=== PATIENT | male | born 1950 | race Caucasian/White ===

== ENCOUNTER 2024-02-19 23:00 | Inpatient (IN) | payer MEDICARE, BC ==
[~2024-02-19 23:00] MED LIST: ACETAMINOPHEN TAB 500 MG TAB ONE; SODIUM CHLORIDE 0.9% 50 ML BAG ONE; cefTRIAXone 2 GM VIAL ONE
[2024-02-20] MEDS ORDERED: SODIUM CHLORIDE 0.9% 50 ML BAG ONE (00:01)
[2024-02-20] MEDS ORDERED: DILTIAZEM 125 MG/25 ML VIAL IV ONE (00:01)
[2024-02-20] MEDS ORDERED: SODIUM CHLORIDE 0.9% 100 ML BAG IV ONE (00:01)
[2024-02-20] MEDS ORDERED: SODIUM CHLORIDE 0.9% 500 ML BAG ONE (00:01)
[2024-02-20] MEDS ORDERED: cefTRIAXone 1 GM VIAL ONE ×2 (08:25→23:24)
[2024-02-20] MEDS ORDERED: ASPIRIN 81 MG ONE (08:25)
[2024-02-20] MEDS ORDERED: PANTOPRAZOLE 40 MG TABLET PO ONE (08:25)
[2024-02-20] MEDS ORDERED: CLOPIDOGREL 75 MG TAB ONE (08:25)
[2024-02-20] MEDS ORDERED: ENOXAPARIN 30 MG/0.3 ML SYRINGE SQ ONE (08:25)
[2024-02-20] MEDS ORDERED: HEPARIN SODIUM,PORCINE 5,000 UNIT/ML 1 ML VIAL ONE (12:55)
[2024-02-20] MEDS ORDERED: DOCUSATE 100 MG CAP ONE (14:20)
[2024-02-20] MEDS ORDERED: ADENOSINE 3 MG/ML 2 ML VIAL IVP ONE ×2 (17:48→17:52)
[2024-02-20] MEDS ORDERED: METOPROLOL TARTRATE 25 MG TAB ONE (18:31)
[2024-02-20] MEDS ORDERED: APIXABAN 2.5 MG TABLET ONE (18:31)
[2024-02-20] MEDS ORDERED: ATORVASTATIN 20 MG TAB ONE (20:36)
[2024-02-20] MEDS ORDERED: LORazepam 2 MG/ML INJ IV PRN ×3 (21:45→21:46)
[2024-02-21] MEDS: THIAMINE 100 MG/ML 2 ML VIAL IM STA (03:03)
[2024-02-21] MEDS: DILTIAZEM 125 MG in SODIUM CHLORIDE 0.9% 100 ML IV SCH (03:04)
[2024-02-21] MEDS: SODIUM CHLORIDE 0.9% 1,000 ML IV SCH (03:04)
[2024-02-21] MEDS: PANTOPRAZOLE 40 MG TABLET PO SCH (06:34)
[2024-02-21 07:00] LABS: Magnesium 2.1 mg/dL (1.6-2.3)
[2024-02-21] MEDS: THIAMINE 100 MG TAB PO SCH (08:59)
[2024-02-21] MEDS: APIXABAN 5 MG TAB PO SCH (08:59)
[2024-02-21] MEDS: MULTIVITAMINS, THERA 1 EACH TAB PO SCH (08:59)
[2024-02-21] MEDS: METOPROLOL TARTRATE 25 MG TAB PO SCH (08:59)
[2024-02-21] MEDS: ASPIRIN 81 MG PO SCH (08:59)
[2024-02-21] MEDS: FAMOTIDINE 20 MG TAB PO SCH (08:59)
[2024-02-21] MEDS: DOCUSATE 100 MG CAP PO SCH (09:00)
[2024-02-21] MEDS: HEPARIN SODIUM,PORCINE 5,000 UNIT/ML 1 ML VIAL SQ SCH (09:00)
--- NOTE | 2024-02-21 10:52 | P.PN ---
Subjective Progress Note Date: 02/21/24 Hospital Course: 73-year-old male history of recently diagnosed lung cancer not on therapy, CKD 3, alcohol dependence presenting after a fall with prolonged downtime and left leg weakness. Initially admitted for possible CVA. Neurology was consulted. CT head did not show any acute process. Laboratory workup showed leukocytosis, elevated creatinine, elevated troponin. On 02/20/2024 patient also had a run of SVT, after administration of adenosine, changed to A-fib with RVR. Cardiology was consulted. Currently on Cardizem drip as well as anticoagulation. Brain MRI did not show any CVA or mass. Echocardiogram pending. Subjective: Patient seen and examined at bedside. No acute events overnight. Making urine. Pertinent positives and negatives as discussed above, a complete review of systems was performed and all other systems are negative. Vitals Signs Reviewed. General: Nontoxic, no distress, appears at stated age Derm: Warm, dry Head: Atraumatic, normocephalic, symmetric Eyes: EOMI, no lid lag, anicteric sclera Mouth: No lip lesion, mucus membranes moist Cardiovascular: S1S2 normal, irregular, no murmur Lungs: CTA bilateral, no rhonchi, no rales, no accessory muscle use Abdominal: Soft, nontender to palpation, no guarding, no appreciable organomegaly Ext: No gross muscle atrophy, no edema, no contractures Neuro: CN II-XI grossly intact, left lower extremity strength 3 out of 5 Psych: Alert, oriented, appropriate affect Data Reviewed Today: Pertinent Labs: Lactate 0.9, magnesium 2.1, TSH 1.67 Imaging: Brain MRI did not show any acute CVA or mass Assessment and Plan: Active: Severe sepsis likely secondary to urinary tract infection -Continue ceftriaxone 2 g IV -Continue normal saline 130 cc an hour NSTEMI likely type II Atrial fibrillation with RVR SVT status post adenosine -Cardiology following -Continue telemetry monitoring -Started on Cardizem drip 5 mg/h -On metoprolol 25 twice daily -On Eliquis 2.5 twice daily -Echocardiogram pending Aspirin 81 mg, atorvastatin 20 mg Fall with prolonged downtime RAJANI on CKD -Neurology following -CK ordered -Repeat CMP pending -No hydronephrosis on kidney ultrasound -CVA ruled out -PT/OT Alcohol dependence Impending alcohol withdrawal Transaminitis -IV Ativan per CIWA -Thiamine 100 mg daily -Liver ultrasound showed possible cholelithiasis, no gallbladder wall thickening, CBD within normal limits Nicotine dependence History of recently diagnosed lung cancer, not on chemotherapy -Has been counseled regarding smoking cessation -Outpatient follow-up with oncology DVT ppx: Eliquis Code status: DNR Anticipated discharge place: Pending clinical course Anticipated discharge time: Pending clinical course Objective - Vital Signs Vital signs: Vital Signs Temp 97.6 F 02/21/24 08:00 Pulse 74 02/21/24 08:00 Resp 16 02/21/24 08:00 BP 132/64 02/21/24 08:00 Pulse Ox 98 02/21/24 08:00 FiO2 Intake & Output 02/20/24 02/21/24 02/21/24 18:59 06:59 18:59 Intake Total 300 Output Total 175 Balance 125 Weight 76 kg 69.5 kg Intake: Oral 300 Output: Gastric Drainage 0 Urine 175 Stool 0 Urine/Stool Mix 0 Emesis 0 Oral Regurgitation 0 Other 0 Other: Voiding Method Urinal # Voids 0 # Bowel Movements 0
--- NOTE | 2024-02-21 11:49 | P.PN ---
Subjective Progress Note Date: 02/21/24 HPI: Patient was admitted after a fall. He was found on floor with a suspected prolonged downtime. On admission there was a concern of possible TIA/stroke for which she had a neurological workup with a CT and MRI which so far has been nonrevealing. During the hospital stay on 02/20/2024, 4 PM he was noticed to be in narrow complex tachycardia for which a team was called. I was at bedside and noted that patient was in A-fib RVR with heart rate of 170s. We gave adenosine which brought down the heart rate and showed underlying rhythm to be atrial fibrillation. Patient denies any chest pain chest pressure. Did report mild worsening shortness of breath.. SUBJECTIVE: The patient is noticed to be in a sinus rhythm heart rate around 70s, does not appear volume overloaded. He denies any chest pain chest pressure. He denies any palpitation lightheadedness at this moment. He does report some numbness in his foot and is slumped over to his left side. PHYSICAL EXAMINATION Vital signs reviewed. Head: Normocephalic. Eyes: Sclerae nonicteric. Neck: Brisk carotid upstroke, no jugular venous distention. Lungs: Clear to auscultation. Heart: Regular rate and rhythm, S1-S2, no S3, no murmur or rub. Abdomen: Soft nontender, bowel sounds present, Extremities: No edema, Neuro:Detailed neuro exam was not performed. Alert and oriented. No slurred speech. ASSESSMENT Fall with prolonged downtime, unclear if real syncopal episode TIA New onset atrial fibrillation, currently converted to normal sinus rhythm with Cardizem drip History of alcohol use, 1 pint whiskey every day Tobacco smoking 1 pack/day Lung cancer, not on chemotherapy. Patient is denying any further workup for lung cancer Extensive weight loss CKD PLAN Continue aspirin 81 mg, started by neurology Continue Eliquis 2.5 mg daily lower dose because of his weight and creatinine Continue metoprolol 25 mg twice daily. Discontinue Cardizem drip Obtain an echocardiogram Await troponin levels. Await neurological workup Britton Robbins MD, FACC, RPVI Thank you for allowing [facility] to participate in this patient's care. Please contact us in case of any followup questions. Objective - Vital Signs Vital signs: Vital Signs Temp 97.6 F 02/21/24 08:00 Pulse 74 02/21/24 08:00 Resp 16 02/21/24 08:00 BP 132/64 02/21/24 08:00 Pulse Ox 98 02/21/24 08:00 FiO2 Intake & Output 02/20/24 02/21/24 02/21/24 18:59 06:59 18:59 Intake Total 300 Output Total 175 Balance 125 Weight 76 kg 69.5 kg Intake: Oral 300 Output: Gastric Drainage 0 Urine 175 Stool 0 Urine/Stool Mix 0 Emesis 0 Oral Regurgitation 0 Other 0 Other: Voiding Method Urinal # Voids 0 # Bowel Movements 0
[2024-02-21 12:12] LABS: Basophils % (A) 0 %; Eosinophils # (A) 0.1 k/uL (0-0.7); Eosinophils % (A) 1 %; HCT 32.1 % (39.0-53.0); HGB 10.6 gm/dL (13.0-17.5); Lymphocytes # (A) 0.6 k/uL (1.0-4.8); Lymphocytes % (A) 8 %; MCH 33.1 pg (25.0-35.0); MCHC 32.9 g/dL (31.0-37.0); MCV 100.7 fL (80.0-100.0); Monocytes # (A) 0.5 k/uL (0-1.0); Monocytes % (A) 7 %; Neutrophils # (A) 6.3 k/uL (1.3-7.7); Neutrophils % (A) 83 %; Platelet Count 168 k/uL (150-450); RBC 3.19 m/uL (4.30-5.90); RDW 12.7 % (11.5-15.5); WBC 7.6 k/uL (3.8-10.6)
[2024-02-21 12:16] LABS: ALT 117 U/L (4-49); AST 245 U/L (17-59); African American GFR (CKD) 46 (>60 ml/min/1.73 sqM); Albumin 2.6 g/dL (3.5-5.0); Alkaline Phosphatase 133 U/L (38-126); Anion Gap 5 mmol/L; Blood Urea Nitrogen 50 mg/dL (9-20); Calcium 8.3 mg/dL (8.4-10.2); Carbon Dioxide 21 mmol/L (22-30); Chloride 108 mmol/L (98-107); Glucose 107 mg/dL (74-99); Non-African American GFR(CKD) 40 (>60 ml/min/1.73 sqM); Potassium 4.1 mmol/L (3.5-5.1); Sodium 134 mmol/L (137-145); Total Bilirubin 0.5 mg/dL (0.2-1.3); Total Protein 5.7 g/dL (6.3-8.2)
[2024-02-21 12:26] LABS: Creatine Kinase 2652 U/L (55-170)
--- NOTE | 2024-02-21 15:56 | P.PN ---
Subjective Progress Note Date: 02/21/24 Patient was seen for a follow-up. Please refer to my note from consultation note from yesterday for details. Patient is presently sleeping in the bed, appears comfortable. Objective - Vital Signs Vital signs: Vital Signs Temp 97.3 F L 02/21/24 15:40 Pulse 66 02/21/24 15:40 Resp 16 02/21/24 15:40 BP 119/64 02/21/24 15:40 Pulse Ox 98 02/21/24 15:40 FiO2 Intake & Output 02/20/24 02/21/24 02/21/24 18:59 06:59 18:59 Intake Total 540 Output Total 175 Balance 365 Weight 76 kg 69.5 kg Intake: Oral 540 Output: Gastric Drainage 0 Urine 175 Stool 0 Urine/Stool Mix 0 Emesis 0 Oral Regurgitation 0 Other 0 Other: Voiding Method Urinal # Voids 0 # Bowel Movements 0 - Exam On waking up, patient is alert and awake. Speech and language functions are normal. Patient has very mild left facial asymmetry, which uncertain his baseline. On muscle strength testing there is no pronator drift. Examination remains unchanged. - Labs CBC & Chem 7: 02/21/24 11:13 02/21/24 11:13 Labs: Abnormal Lab Results - Last 24 Hours (Table) 02/21/24 02/21/24 Range/Units 11:13 11:13 RBC 3.19 L (4.30-5.90) m/uL Hgb 10.6 L (13.0-17.5) gm/dL Hct 32.1 L (39.0-53.0) % MCV 100.7 H (80.0-100.0) fL Lymphocytes # 0.6 L (1.0-4.8) k/uL Sodium 134 L (137-145) mmol/L Chloride 108 H (98-107) mmol/L Carbon Dioxide 21 L (22-30) mmol/L BUN 50 H (9-20) mg/dL Creatinine 1.66 H (0.66-1.25) mg/dL Glucose 107 H (74-99) mg/dL Calcium 8.3 L (8.4-10.2) mg/dL AST 245 H (17-59) U/L ALT 117 H (4-49) U/L Alkaline Phosphatase 133 H (38-126) U/L Creatine Kinase 2652 H* (55-170) U/L Total Protein 5.7 L (6.3-8.2) g/dL Albumin 2.6 L (3.5-5.0) g/dL Assessment and Plan Assessment: * Status post fall due to slipping on throw rug 02/17/2024 with prolonged loss of awareness for several hours, and inability to get up for 24 hours. Rule out concussion versus seizure (patient remembers falling due to slipping). CVA ruled out * Patient had new onset atrial fibrillation yesterday after a bout of SVT. * Renal insufficiency * Left leg weakness, likely due to laying on hard floor for 24 hours, improving. CVA ruled out. * Rhabdomyolysis * Elevated liver enzymes * Lung cancer stage II diagnosed October 2023, declined treatment * Hypertension * COPD * UTI/hematuria * Medical noncompliance * Alcoholism * Tobacco use Plan: * MRI of brain without contrast revealed no evidence of intracranial mass, acute or subacute infarct. Nonspecific white matter changes, likely secondary to small vessel ischemic disease. * Carotid Doppler revealed velocity elevation within the right ICA, may reflect a moderate (50 to 69%) right ICA stenosis. Unable to visualize the left vertebral artery. This could be due to hypoplasia or occlusion. * Continue aspirin 81 mg daily. Patient also started on Eliquis 2.5 mg twice daily by cardiology because of new onset atrial fibrillation. * EEG rule out any epileptiform activity * B12, folate * Hemoglobin A1c, lipid panel * Thiamine, folate, multivitamins. Watch for DTs. * Dr. Kevin Gipson to resume neurology service in the morning.
[2024-02-21] MEDS: ATORVASTATIN 20 MG TAB PO SCH (20:12)
[2024-02-22 07:46] LABS: Basophils % (A) 1 %; Eosinophils # (A) 0.1 k/uL (0-0.7); Eosinophils % (A) 1 %; HCT 35.6 % (39.0-53.0); HGB 11.7 gm/dL (13.0-17.5); Lymphocytes # (A) 0.9 k/uL (1.0-4.8); Lymphocytes % (A) 14 %; MCH 33.5 pg (25.0-35.0); MCHC 32.7 g/dL (31.0-37.0); MCV 102.3 fL (80.0-100.0); Macrocytosis Slight; Mean Platelet Volume 8.4; Monocytes # (A) 0.5 k/uL (0-1.0); Monocytes % (A) 7 %; Neutrophils % (A) 75 %; Platelet Count 188 k/uL (150-450); RBC 3.48 m/uL (4.30-5.90); RDW 12.9 % (11.5-15.5); WBC 6.7 k/uL (3.8-10.6)
[2024-02-22 08:14] LABS: ALT 146 U/L (4-49); AST 214 U/L (17-59); African American GFR (CKD) 50 (>60 ml/min/1.73 sqM); Albumin 2.9 g/dL (3.5-5.0); Alkaline Phosphatase 167 U/L (38-126); Anion Gap 6 mmol/L; Blood Urea Nitrogen 44 mg/dL (9-20); Calcium 8.7 mg/dL (8.4-10.2); Carbon Dioxide 24 mmol/L (22-30); Chloride 108 mmol/L (98-107); Glucose 94 mg/dL (74-99); Non-African American GFR(CKD) 44 (>60 ml/min/1.73 sqM); Potassium 4.3 mmol/L (3.5-5.1); Sodium 138 mmol/L (137-145); Total Bilirubin 0.5 mg/dL (0.2-1.3); Total Protein 6.1 g/dL (6.3-8.2)
[2024-02-22 08:17] LABS: Creatine Kinase 1248 U/L (55-170)
[2024-02-22 12:28] LABS: Chol/HDL Ratio 3.77 Ratio; LDL Cholesterol,Calculated 62.7 mg/dL (0.0-131.0)
[2024-02-22] MEDS: METOPROLOL TARTRATE 25 MG TAB ONE ×3 (12:31→12:32)
[2024-02-22] MEDS: ASPIRIN 81 MG ONE ×2 (12:31→12:32)
[2024-02-22] MEDS: PANTOPRAZOLE 40 MG TABLET PO ONE (12:32)
[2024-02-22] MEDS: FAMOTIDINE 20 MG TAB ONE ×3 (12:32)
[2024-02-22] MEDS ORDERED: ZINC OXIDE PASTE (Z-GUARD) 1 APPLIC TOPICAL PRN (12:36)
[2024-02-22] MEDS ORDERED: hydrOXYzine HCL 25 MG TAB PO PRN (12:37)
[2024-02-22] MEDS: ACETAMINOPHEN TAB 325 MG TAB PO PRN (12:51)
--- NOTE | 2024-02-22 13:22 | P.PN ---
Subjective Progress Note Date: 02/22/24 HPI: Patient was admitted after a fall. He was found on floor with a suspected prolonged downtime. On admission there was a concern of possible TIA/stroke for which she had a neurological workup with a CT and MRI which so far has been nonrevealing. During the hospital stay on 02/20/2024, 4 PM he was noticed to be in narrow complex tachycardia for which a team was called. I was at bedside and noted that patient was in A-fib RVR with heart rate of 170s. We gave adenosine which brought down the heart rate and showed underlying rhythm to be atrial fibrillation. Patient denies any chest pain chest pressure. Did report mild worsening shortness of breath.. SUBJECTIVE: The patient is noticed to be in a sinus rhythm heart rate around 70s, does not appear volume overloaded. He denies any chest pain chest pressure. He denies any palpitation lightheadedness at this moment. He does report some numbness in his foot and is slumped over to his left side. 02/21 Patient is seen and examined at the bedside. He denies any new concerns. He has ambulated in his room only. Daughter helped him get dressed today. Neurology is following the patient. Blood pressure 145/66, heart rate 69, pulse ox 98% on 2 L nasal cannula. Echocardiogram is pending. Repeat blood work reveals CK 1248. Liver function test remain elevated slightly up from yesterday. BUN 44 creatinine 1.54. PHYSICAL EXAMINATION Vital signs reviewed. Head: Normocephalic. Eyes: Sclerae nonicteric. Neck: Brisk carotid upstroke, no jugular venous distention. Lungs: Clear to auscultation. Heart: Regular rate and rhythm, S1-S2, no S3, no murmur or rub. Abdomen: Soft nontender, bowel sounds present, Extremities: No edema, Neuro:Alert and oriented. No slurred speech. ASSESSMENT Fall with prolonged downtime, unclear if real syncopal episode TIA New onset atrial fibrillation, currently converted to normal sinus rhythm with Cardizem drip History of alcohol use, 1 pint whiskey every day Tobacco smoking 1 pack/day Lung cancer, not on chemotherapy. Patient is denying any further workup for lung cancer Extensive weight loss CKD PLAN Continue aspirin 81 mg, started by neurology Continue Eliquis 2.5 mg daily lower dose because of his weight and creatinine Continue metoprolol 25 mg twice daily. Obtain an echocardiogram Neurology is following Nurse practitioner note has been reviewed, I agree with documented findings and plan of care. Patient was seen and examined. Objective - Vital Signs Vital signs: Vital Signs Temp 98.2 F 02/22/24 04:00 Pulse 69 02/22/24 04:00 Resp 18 02/22/24 04:00 BP 145/66 02/22/24 04:00 Pulse Ox 98 02/22/24 04:00 FiO2 Intake & Output 02/21/24 02/22/24 02/22/24 18:59 06:59 18:59 Intake Total 660 200 Output Total 325 675 Balance 335 -675 200 Weight 77.8 kg Intake: Oral 660 200 Output: Gastric Drainage 0 Urine 325 675 Stool 0 Urine/Stool Mix 0 Emesis 0 Oral Regurgitation 0 Other 0 Other: Voiding Method Urinal Urinal # Voids 0 1 # Bowel Movements 0 - Labs CBC & Chem 7: 02/22/24 07:09 02/22/24 07:09 Labs: Abnormal Lab Results - Last 24 Hours (Table) 02/21/24 02/21/24 02/22/24 Range/Units 11:13 11:13 07:09 RBC 3.19 L (4.30-5.90) m/uL Hgb 10.6 L (13.0-17.5) gm/dL Hct 32.1 L (39.0-53.0) % MCV 100.7 H (80.0-100.0) fL Lymphocytes # 0.6 L (1.0-4.8) k/uL Sodium 134 L (137-145) mmol/L Chloride 108 H 108 H (98-107) mmol/L Carbon Dioxide 21 L (22-30) mmol/L BUN 50 H 44 H (9-20) mg/dL Creatinine 1.66 H 1.54 H (0.66-1.25) mg/dL Glucose 107 H (74-99) mg/dL Calcium 8.3 L (8.4-10.2) mg/dL AST 245 H 214 H (17-59) U/L ALT 117 H 146 H (4-49) U/L Alkaline Phosphatase 133 H 167 H (38-126) U/L Creatine Kinase 2652 H* 1248 H* (55-170) U/L Total Protein 5.7 L 6.1 L (6.3-8.2) g/dL Albumin 2.6 L 2.9 L (3.5-5.0) g/dL 02/22/24 Range/Units 07:09 RBC 3.48 L (4.30-5.90) m/uL Hgb 11.7 L (13.0-17.5) gm/dL Hct 35.6 L (39.0-53.0) % MCV 102.3 H (80.0-100.0) fL Lymphocytes # 0.9 L (1.0-4.8) k/uL Sodium (137-145) mmol/L Chloride (98-107) mmol/L Carbon Dioxide (22-30) mmol/L BUN (9-20) mg/dL Creatinine (0.66-1.25) mg/dL Glucose (74-99) mg/dL Calcium (8.4-10.2) mg/dL AST (17-59) U/L ALT (4-49) U/L Alkaline Phosphatase (38-126) U/L Creatine Kinase (55-170) U/L Total Protein (6.3-8.2) g/dL Albumin (3.5-5.0) g/dL
--- NOTE | 2024-02-22 15:31 | P.PN ---
Subjective Progress Note Date: 02/22/24 Subjective: Patient examined at bedside. No acute events overnight. Patient denies shortness of breath, chest pain and abdominal pain. All Systems reviewed and pertinent positives and negatives noted in HPI, all other symptoms are negative Objective: Vital signs reviewed. General: Nontoxic, no distress, appears at stated age Derm: Warm, dry, sacral erythema/stage I decubitus ulcer Head: Atraumatic, normocephalic, symmetric Eyes: EOMI, no lid lag, anicteric sclera Mouth: No lip lesion, mucus membranes moist Cardiovascular: S1S2 normal, regular, no murmur Lungs: CTA bilateral, no rhonchi, no rales, no accessory muscle use Abdominal: Soft, nontender to palpation, no guarding, no appreciable organomegaly Ext: No gross muscle atrophy, no edema, no contractures Neuro: CN II-XI grossly intact, left lower extremity strength 4 out of 5 Psych: Alert, oriented, appropriate affectis Data reviewed today: WBC 6.7, hemoglobin 11.7, hematocrit 35.6, MCV 102.3, platelet count 188, sodium 138, potassium 4.3, chloride 108, bicarb 24, BUN 44, creatinine 1.54, GFR 44, HbA1c 5.4, calcium 8.7, magnesium 2.0, AST 214, ALT 46, alkaline phosphatase 167, creatinine kinase 1248. No new imaging. Assessment and Plan: 33-year-old male with history of recently diagnosed lung cancer not on chemotherapy, CKD stage IIIb, and alcohol dependence was admitted to the hospital after a fall with prolonged downtime and left leg weakness. During the hospital stay, patient had a new onset A-fib with RVR treated with Cardizem drip, currently in normal sinus rhythm. 1. RAJANI on CKD secondary to rhabdomyolysis in light of fall with prolonged downtime Discussed with neurology, EEG did not show any epileptiform discharges Creatinine kinase 1248 trending down from 2652 BUN 44, creatinine 1.54, GFR 44 (BUN and creatinine improving) No hydronephrosis on kidney ultrasound CVA ruled out Continue with PT/OT -Initially concerned about urinary tract infection, was on IV ceftriaxone, unlikely as patient has no symptoms Continue with normal saline IV 130 cc/h -Continue aspirin 81 mg per neurology Continue with Lipitor 20 mg p.o. at bedtime 2. A-fib with RVR, now rate controlled Elevated troponin, likely secondary to rhabdo Cardiology note reviewed, recommendations as below Continue cardiac monitoring Continue Eliquis 2.5 mg p.o. twice daily Continue with metoprolol 25 mg p.o. twice daily Discontinue Cardizem drip as per cardiology Echocardiogram ordered, results pending 3. Transaminitis secondary to alcohol dependence versus rhabdo AST 214, ALT 46, alkaline phosphatase 167 IV Ativan per CIWA Continue with thiamine 100 mg daily Liver ultrasound showed possible cholelithiasis, no bladder wall thickening, CBD within normal limits 4. Nicotine dependence History of recently diagnosed lung cancer, not on chemotherapy Has been counseled regarding smoking cessation Outpatient follow-up with oncology Macrocytic anemia -Repeat CBC tomorrow Stage I sacral decubitus ulcer, present on admission -Local wound care Resolved: Mild hyponatremia Non-anion gap metabolic acidosis F: IV normal saline 130 cc/h E: Replete as needed N: Heart healthy diet A: Ambulatory with assist DVT ppx: Eliquis Code Status: DNR Anticipated discharge place: Home Anticipated discharge date: Pending clinical course I have seen and evaluated the patient today. Discussed with the resident and agree with the residents finding and plan as documented in the resident's note. Changes highlighted in blue font. Objective - Vital Signs Vital signs: Vital Signs Temp 97.7 F 02/22/24 12:00 Pulse 63 02/22/24 12:00 Resp 16 02/22/24 12:00 BP 139/65 02/22/24 12:00 Pulse Ox 98 02/22/24 12:00 FiO2 Intake & Output 02/21/24 02/22/24 02/22/24 18:59 06:59 18:59 Intake Total 660 320 Output Total 325 675 Balance 335 -675 320 Weight 77.8 kg Intake: Oral 660 320 Output: Gastric Drainage 0 Urine 325 675 Stool 0 Urine/Stool Mix 0 Emesis 0 Oral Regurgitation 0 Other 0 Other: Voiding Method Urinal Urinal Urinal # Voids 0 1 2 # Bowel Movements 0 - Labs CBC & Chem 7: 02/22/24 07:09 02/22/24 07:09 Labs: Abnormal Lab Results - Last 24 Hours (Table) 02/22/24 02/22/24 Range/Units 07:09 07:09 RBC 3.48 L (4.30-5.90) m/uL Hgb 11.7 L (13.0-17.5) gm/dL Hct 35.6 L (39.0-53.0) % MCV 102.3 H (80.0-100.0) fL Lymphocytes # 0.9 L (1.0-4.8) k/uL Chloride 108 H (98-107) mmol/L BUN 44 H (9-20) mg/dL Creatinine 1.54 H (0.66-1.25) mg/dL AST 214 H (17-59) U/L ALT 146 H (4-49) U/L Alkaline Phosphatase 167 H (38-126) U/L Creatine Kinase 1248 H* (55-170) U/L Total Protein 6.1 L (6.3-8.2) g/dL Albumin 2.9 L (3.5-5.0) g/dL HDL Cholesterol 32.90 L (40.00-60.00) mg/dL Vitamin B12 1642.0 H (200.0-944.0) pg/mL
--- NOTE | 2024-02-22 17:40 | P.PN ---
Subjective Progress Note Date: 02/22/24 I am seeing the patient for the first time during this hospital admission. Please refer to Dr. Vincent's notes for further details. Patient daughter is at bedside who provides some the history. She stated the patient has a history of alcohol use and it seems at home he was trying to get out of the toilet and then he tripped over bathroom rug fell hit his head and passed out. His daughter stated that this happened after he drank alcohol and he drinks probably 3 drinks of 6 ounces. It seems that he laid down on the hard floor for 24 hours and had left leg weakness and he had rhabdo. He denies any low back pain. Denies any history of stroke. Denies any history of seizure. Denies any upper extremity weakness. Objective - Vital Signs Vital signs: Vital Signs Temp 97.7 F 02/22/24 12:00 Pulse 63 02/22/24 12:00 Resp 16 02/22/24 12:00 BP 139/65 02/22/24 12:00 Pulse Ox 98 02/22/24 12:00 FiO2 Intake & Output 02/21/24 02/22/24 02/22/24 18:59 06:59 18:59 Intake Total 660 320 Output Total 325 675 Balance 335 -675 320 Weight 77.8 kg Intake: Oral 660 320 Output: Gastric Drainage 0 Urine 325 675 Stool 0 Urine/Stool Mix 0 Emesis 0 Oral Regurgitation 0 Other 0 Other: Voiding Method Urinal Urinal Urinal # Voids 0 1 2 # Bowel Movements 0 - Exam General: Sitting up in recliner chair and is not in acute distress. Neuro: Patient is awake alert oriented to self place and time. Is following simple commands. No aphasia no neglect. Pulls are round equal reactive to light. Visual murdock are full to confrontation. No facial weakness. No dysarthria Motor left lower extremity weakness and its about 4+ otherwise strength is 5 out of 5 Sensation normal to touch throughout - Labs CBC & Chem 7: 02/22/24 07:09 02/22/24 07:09 Labs: Abnormal Lab Results - Last 24 Hours (Table) 02/22/24 02/22/24 Range/Units 07:09 07:09 RBC 3.48 L (4.30-5.90) m/uL Hgb 11.7 L (13.0-17.5) gm/dL Hct 35.6 L (39.0-53.0) % MCV 102.3 H (80.0-100.0) fL Lymphocytes # 0.9 L (1.0-4.8) k/uL Chloride 108 H (98-107) mmol/L BUN 44 H (9-20) mg/dL Creatinine 1.54 H (0.66-1.25) mg/dL AST 214 H (17-59) U/L ALT 146 H (4-49) U/L Alkaline Phosphatase 167 H (38-126) U/L Creatine Kinase 1248 H* (55-170) U/L Total Protein 6.1 L (6.3-8.2) g/dL Albumin 2.9 L (3.5-5.0) g/dL HDL Cholesterol 32.90 L (40.00-60.00) mg/dL Vitamin B12 1642.0 H (200.0-944.0) pg/mL Assessment and Plan Assessment: * Status post fall due to slipping on throw rug 02/17/2024 with prolonged loss of awareness for several hours, and inability to get up for 24 hours. Rule out concussion versus seizure (patient remembers falling due to slipping). CVA ruled out * Patient had new onset atrial fibrillation yesterday after a bout of SVT. Feels his event happened after he drank alcohol. * Renal insufficiency * Left leg weakness, likely due to laying on hard floor for 24 hours, improving. CVA ruled out. * Rhabdomyolysis--trending down * Elevated liver enzymes * High normal B12 close is deficient his level was 4.50 and the normal is 4.4- 31. * Lung cancer stage II diagnosed October 2023, declined treatment * Hypertension * COPD * UTI/hematuria * Medical noncompliance * Alcoholism * Tobacco use Plan: * MRI of brain without contrast revealed no evidence of intracranial mass, acute or subacute infarct. Nonspecific white matter changes, likely secondary to small vessel ischemic disease. * Carotid Doppler revealed velocity elevation within the right ICA, may reflect a moderate (50 to 69%) right ICA stenosis. Unable to visualize the left vertebral artery. This could be due to hypoplasia or occlusion. * Continue aspirin 81 mg daily. Patient also started on Eliquis 2.5 mg twice daily by cardiology because of new onset atrial fibrillation. * EEG Preliminary is negative for seizure or discharges. * B12: 1642, folate: 4.50 and I started him on folic acid 1mg daily * Hemoglobin A1c: 5.4, lipid panel: Triglycerides L4 42, cholesterol is 124, LDL 62 and HDL is 32 * Recommend an EMG with nerve conduction study as an outpatient of the left lower extremity if patient continues to have weakness or numbness. * Thiamine, folate, multivitamins. Watch for DTs. * Patient was counseled on alcohol cessation. * Given the patient to follow-up with a neurologist as an outpatient within 2 to 3 weeks. Plan discussed with the patient daughter is at bedside and the patient. Time with Patient: Less than 30
[2024-02-22] MEDS: FOLIC ACID 1 MG TAB PO SCH (18:49)
--- NOTE | 2024-02-23 08:46 | CT ---
EXAMINATION TYPE: CT lumbar spine wo con DATE OF EXAM: 02/23/2024 COMPARISON: None HISTORY: 73-year-old male with left leg weakness TECHNIQUE: Contiguous axial scanning of the lumbar spine without IV contrast. Coronal and sagittal re constructions performed. CT DLP: 921.4 mGycm Automated exposure control for dose reduction was used. FINDINGS: Trace bilateral pleural effusions. Layering gravel in the gallbladder. Ectatic descending thoracic aorta 2.9 cm. Moderate atherosclerotic calcifications throughout the abdominal aorta. Mild fusiform ectasia infrare nal abdominal aorta to 2.7 cm. 3 mm nonobstructive right renal calculus. Severe focal atherosclerotic stenosis proximal left common iliac artery. Vertebral body heights are preserved and alignment is maintained though there is straightening of the normal lumbar lordosis. Moderate to severe degenerative disc disease L5-S1 with desiccated, narrowed, and bulging disc. No si gnificant canal stenosis here. Additional diffuse disc bulge at L4-L5 contributing to moderate focal spinal canal stenosis. Smaller diffuse disc bulge L3-L4 contributing to mild narrowing of the spinal canal. Moderate facet arthropathy is present throughout. On the right, changes result in mild to moderate neuroforaminal stenosis at at both L3-L4 and L5-S1. On the left, changes result in mild neuroforaminal narrowing from L3 through S1 levels. However, lateral disc osteophyte complexes that L5-S1 may abut the bilateral extraforaminal L5 nerve roots on both sides. IMPRESSION: 1. MODERATE TO SEVERE DEGENERATIVE DISC DISEASE AT L5-S1. LATERAL DISC OSTEOPHYTE COMPLEXES HERE MAY ABUT THE BILATERAL EXTRAFORAMINAL L5 NERVE ROOTS. CHANGES HERE ALSO CONTRIBUTE TO MILD TO MODERATE RI GHT AND MILD LEFT NEUROFORAMINAL STENOSIS. 2. ADDITIONAL DIFFUSELY BULGING DISC AT L4-L5 CAUSES MODERATE NARROWING OF THE SPINAL CANAL. 3. NO VERTEBRAL COMPRESSION COLLAPSE OR MALALIGNMENT. 4. A NUMBER OF INCIDENTAL FINDINGS ABOVE INCLUDING TRACE PLEURAL EFFUSIONS, LAYERING TINY CALCULI IN THE GALLBLADDER, 3 MM NONOBSTRUCTIVE RIGHT RENAL CALCULUS, AND SEVERE FOCAL ATHEROSCLEROTIC STENOS IS LEFT COMMON ILIAC ARTERY.
[2024-02-23 09:05] LABS: HCT 35.5 % (39.0-53.0); HGB 11.8 gm/dL (13.0-17.5); MCH 33.6 pg (25.0-35.0); MCHC 33.1 g/dL (31.0-37.0); MCV 101.5 fL (80.0-100.0); Mean Platelet Volume 9.6; Platelet Count 217 k/uL (150-450); RDW 12.9 % (11.5-15.5); WBC 7.9 k/uL (3.8-10.6)
[2024-02-23 09:27] VITALS: RESP 17
--- NOTE | 2024-02-23 10:14 | EEG ---
ELECTROENCEPHALOGRAM REPORT CLINICAL HISTORY: This is a 73-year-old gentleman with a fall with prolonged loss of awareness. The video EEG was obtained to evaluate for seizure epileptiform activity. A routine EEG using 10/20 electrode placement system was performed. DESCRIPTION: Wakefulness is obtained. The background consists of [id number] voltage of 9 hertz activity that seems well modulated, well sustained. There is no physiological stage 2 sleep architecture. There is no focal slowing. There is mild diffuse myogenic as well as electrode artifact noted. ACTIVATION PROCEDURE: Photic stimulation and hyperventilation are not performed. CLINICAL INTERPRETATION: This is a normal routine EEG. There is no focal slowing, epileptiform discharge or seizure on the EEG. A normal routine EEG does not rule out underlying epilepsy. Clinical correlation is recommended. MMODL / IJN: [id number] /
[2024-02-23 10:31] LABS: Appearance,Urine Cloudy (Clear); Bacteria,Urine Rare /hpf; Bilirubin,Urine Negative (Negative); Blood,Urine Moderate (Negative); Color,Urine Colorless; Glucose,Urine (UA) Negative (Negative); Ketones,Urine Negative (Negative); Leukocyte Esterase,Urine Large (Negative); Mucus,Urine Rare /hpf; Nitrite,Urine Negative (Negative); PH, Urine 5.5 (5.0-8.0); Protein,Urine Trace (Negative); RBC,Urine 21 /hpf (0-5); Specific Gravity,Urine 1.014 (1.001-1.035); Squamous Epithelial Cell,Urine 1 /hpf (0-4); Urobilinogen,Urine <2.0 mg/dL (<2.0); WBC,Urine >182 /hpf (0-5)
--- NOTE | 2024-02-23 11:25 | P.PN ---
Subjective Progress Note Date: 02/23/24 Patient is feeling much better now. He is ambulating with a walker. Denies any chest pain difficulty in breathing palpitations dizziness or syncope. Echo results are still pending at this time. On exam Patient is comfortable at rest blood pressure is elevated there is no jugular venous distention carotid upstroke is normal there is no bruit chest exam reveals good air entry bilaterally heart exam reveals first and second heart sounds and a systolic murmur at the left lower sternal border abdomen is soft examination extremities did not reveal any edema peripheral pulses are felt Assessment and plan: Paroxysmal atrial fibrillation CVA Uncontrolled hypertension Echo results are pending I will adjust antihypertensives Objective - Vital Signs Vital signs: Vital Signs Temp 98 F 02/23/24 08:00 Pulse 78 02/23/24 08:00 Resp 17 02/23/24 08:00 BP 165/73 02/23/24 08:00 Pulse Ox 96 02/23/24 08:23 FiO2 Intake & Output 02/22/24 02/23/24 02/23/24 18:59 06:59 18:59 Intake Total 440 Output Total 250 1100 Balance 190 -1100 Weight 68.5 kg Intake: Oral 440 Output: Urine 250 1100 Other: Voiding Method Urinal Urinal Urinal # Voids 2 3 2 # Bowel Movements 1 1 - Labs CBC & Chem 7: 02/23/24 08:17 02/22/24 07:09 Labs: Abnormal Lab Results - Last 24 Hours (Table) 02/22/24 02/23/24 02/23/24 Range/Units 07:09 08:17 08:17 RBC 3.50 L (4.30-5.90) m/uL Hgb 11.8 L (13.0-17.5) gm/dL Hct 35.5 L (39.0-53.0) % MCV 101.5 H (80.0-100.0) fL Creatine Kinase 794 H (55-170) U/L HDL Cholesterol 32.90 L (40.00-60.00) mg/dL Vitamin B12 1642.0 H (200.0-944.0) pg/mL Urine Protein (Negative) Urine Blood (Negative) Ur Leukocyte Esterase (Negative) Urine RBC (0-5) /hpf Urine WBC (0-5) /hpf Urine WBC Clumps (None) /hpf Urine Bacteria (None) /hpf Urine Mucus (None) /hpf 02/23/24 Range/Units 09:29 RBC (4.30-5.90) m/uL Hgb (13.0-17.5) gm/dL Hct (39.0-53.0) % MCV (80.0-100.0) fL Creatine Kinase (55-170) U/L HDL Cholesterol (40.00-60.00) mg/dL Vitamin B12 (200.0-944.0) pg/mL Urine Protein Trace H (Negative) Urine Blood Moderate H (Negative) Ur Leukocyte Esterase Large H (Negative) Urine RBC 21 H (0-5) /hpf Urine WBC >182 H (0-5) /hpf Urine WBC Clumps Few H (None) /hpf Urine Bacteria Rare H (None) /hpf Urine Mucus Rare H (None) /hpf
[2024-02-23] MEDS: amLODIPine 5 MG TAB PO SCH (11:45)
[2024-02-23 11:56] VITALS: BP 168/80; PULSE 61; TEMP 97.1
--- NOTE | 2024-02-23 13:02 | P.DS ---
Providers Date of admission: 02/19/24 23:00 Expected date of discharge: 02/23/24 Attending physician: Kevyn Rice MD Discharge Diagnosis: 1. Acute kidney injury 2. A-fib with RVR 3. Macrocytic anemia 4. Alcohol dependence Hospital Course: 73-year-old male with past medical history of recently diagnosed lung cancer not on therapy, CKD stage III, alcohol dependence presented on 02/21/2024 to ED on request fall with a prolonged downtime and left leg weakness patient was i nitially admitted for possible CVA and neurology was consulted. Did not show any acute processes. The laboratory workup showed leukocytosis, elevated creatinine. On 02/20/2024 patient also had a bout of SVT, after administration of adenosine, changed to A-fib with RVR. Cardiology was consulted. Patient was started on Cardizem drip and anticoagulation. Patient was sinus rhythm. Echocardiogram done with results still pending. Brain MRI not show any CVA or mass. CT of the lumbar spine without contrast done on 02/23/2024 shows moderate to severe degenerative disc disease at L5-S1. However, patient was able to ambulate without any weakness on the day of discharge. He reported feeling completely back to baseline and educated he will follow-up with his primary care physician for follow-up basic metabolic panel to ensure improving kidney function. His new medications were prescribed to his pharmacy on discharge including new prescription for Eliquis, metoprolol, amlodipine, atorvastatin. 38 minutes were used coordinating this discharge Vital signs reviewed. Gen: in no apparent distress, resting comfortably in bed Eyes: PERRL, no scleral injection or icterus HENT: normocephalic, atraumatic, good hearing acuity, moist mucous membranes Neck: full range of motion Resp: CTAB, no rales, rhonchi, or wheezes CVS: normal S1 and S2, no murmurs, rubs or gallops, no edema GI: soft, NTTP, ND, no hepatosplenomegaly : no suprapubic tenderness, no CVAT, haddad catheter present MSK: no clubbing, no cyanosis, no noted contractures of extremities Skin: no noted rashes, petechiae; temperature of skin is appropriate Neuro: moving all extremities without signs of weakness, CN II-XII intact Psych: cooperative, euthymic mood, insight and judgment intact I saw and evaluated the patient during the joe and critical portions of this encounter, and discussed the case in detail with the resident author of this note, I agree with the Assessment and Plan, and my changes, if any, are highlighted in blue. Consults: 02/19/24 23:00 Consult Physician Routine Consulting Provider: Susie Vincent Consult Reason/Comments: CVA Do you want consulting provider notified?: Already Contacted 02/21/24 12:56 Consult Physician Routine Consulting Provider: Britton Robbins Consult Reason/Comments: NOS Afib Do you want consulting provider notified?: Yes Primary care physician: Stated None Plan - Discharge Summary New Discharge Prescriptions: New Folic Acid 1 mg PO DAILY #14 tab Atorvastatin [Lipitor] 20 mg PO HS #30 tab Multivitamins, Thera [Multivitamin (formulary)] 1 each PO DAILY tab Thiamine [Vitamin B-1] 100 mg PO DAILY #14 tab Metoprolol Tartrate [Lopressor] 25 mg PO BID #60 tablet amLODIPine [Norvasc] 5 mg PO DAILY #30 tab Aspirin 81 mg PO DAILY #30 tab Apixaban [Eliquis] 2.5 mg PO BID #30 tab Famotidine [Pepcid] 20 mg PO BID tab Discharge Medication List Apixaban [Eliquis] 2.5 mg PO BID #30 tab 02/23/24 [Rx] Aspirin 81 mg PO DAILY #30 tab 02/23/24 [Rx] Atorvastatin [Lipitor] 20 mg PO HS #30 tab 02/23/24 [Rx] Famotidine [Pepcid] 20 mg PO BID tab 02/23/24 [Rx] Folic Acid 1 mg PO DAILY #14 tab 02/23/24 [Rx] Metoprolol Tartrate [Lopressor] 25 mg PO BID #60 tablet 02/23/24 [Rx] Multivitamins, Thera [Multivitamin (formulary)] 1 each PO DAILY tab 02/23/24 [Rx] Thiamine [Vitamin B-1] 100 mg PO DAILY #14 tab 02/23/24 [Rx] amLODIPine [Norvasc] 5 mg PO DAILY #30 tab 02/23/24 [Rx] Follow up Appointment(s)/Referral(s): [facility] Nurse, [NON-STAFF] - [facility],Clinic [REFERRING] - 03/11/24 8:00 am Patient Instructions/Handouts: A-fib (Atrial Fibrillation) (DC), Ischemic Stroke (DC) Activity/Diet/Wound Care/Special Instructions: speak with Dr Eubanks when following up at [facility] about placing a community consult for director life insurance for management of New onset Atrial fibrillation. Discharge Disposition: HOME SELF-CARE
--- NOTE | 2024-03-09 06:59 | CT ---
Report Patient: Jaziel Diggs Ordering Physician: Unknown, Unknown ID: [id number] Phone, Pager: Phone: N/A Pager: N/A : 1950 Age/Gender: 73Y, M Primary Location: N/A Procedure: CT brain cspine wo con Study Date: 02/19/2024 8:13:00 PM EXAMINATION TYPE: CT brain cspine wo con DATE OF EXAM: 02/19/2024 COMPARISON: None HISTORY: 73-year-old male with weakness and fever, history of lung cancer CT DLP: 1347.8 mGycm Automated exposure control for dose reduction was used. Technique: Examination of the head was done in axial plane without intravenous contrast. Coronal and sagittal reconstructions performed. CT of the cervical spine was obtained in axial plane without intravenous injection of contrast mater ial. Coronal and sagittal reformatted images were obtained from the axial views for evaluation of f ractures, spinal alignment and canal. FINDINGS: Head: There is no evidence of acute intracranial hemorrhage, acute ischemic changes, mass, mass-effect, or extra-axial fluid collection. There is no effacement of cerebral sulci or basal subarachnoid cister ns. There is no hydrocephalus. There is no midline shift. Jon-white matter distinction is preserv ed. Prominent rightward nasal septal deviation with scattered mild ethmoid sinus mucosal thickening and b ilateral conchal bullosa. Orbits and globes are intact. Mastoid air cells are pneumatized. Minimal op acification. Left mastoid air cells. Mild to moderate patchy white matter hypodensity in the subcortical regions suggesting the parietal l obes and left insular lobe. Atherosclerotic calcifications in the carotid siphons. Mild age-related v olume loss overlying the bilateral cerebral convexities. Cervical spine: Degenerative change of the C1 dens articulation. No prevertebral soft tissue swelling. Trace degenera tive grade 1 anterolisthesis C3-C4. Scattered mild spondylotic change. Remainder of the alignment of the cervical spine is normal on coronal and reformatted images. There is no cranial vertebral abnorma lity. Fracture of the cervical spine is not seen. There is no evidence of focal disk herniation by CT . No significant spinal canal stenosis. Sagittal and coronal reformatted images confirm above findings. COMBINED IMPRESSION: 1. Mild to moderate burden of chronic small vessel ischemic disease. No acute intracranial abnormalit y seen. 2. No acute fracture of the cervical spine. Mild spondylotic change with a trace grade 1 anterolisthe sis at C3-C4.
--- NOTE | 2024-03-09 08:59 | MR ---
Patient: Jaziel Diggs Ordering Physician: Unknown, Unknown ID: [id number] Phone, Pager: Phone: N/A Pager: N/A : 1950 Age/Gender: 73Y, M Primary Location: N/A Procedure: MR brain wo con Study Date: 02/20/2024 12:42:00 PM EXAMINATION TYPE: MR brain wo con DATE OF EXAM: 02/20/2024 1:59 PM CLINICAL INDICATION: CVA weakness COMPARISON: CT brain 02/16/2024. TECHNIQUE: Multi planar, multi sequence imaging was performed through the brain including: T1, T2, In version recovery, Diffusion weighted imaging, and gradient echo imaging. No gadolinium was given. FINDINGS: The ceballos-white junctions, ventricular system, basal cisterns appear unremarkable. Scattered foci of high T2 signal intensity are seen within the periventricular white matter. Midline structures show n o abnormality. Diffusion-weighted imaging shows no evidence of restricted diffusion. The susceptibili ty weighted images do not reveal any evidence for micro-hemorrhage. The bone marrow signal is within normal limits. Paranasal sinuses and mastoid air cells: No significant paranasal sinus disease. Visualized orbits: Right aphakia. IMPRESSION: 1. No evidence of intracranial mass or acute/subacute infarct. 2. Nonspecific white matter changes, likely secondary to small vessel ischemic disease.
--- NOTE | 2024-03-15 11:00 | CA ---
Transthoracic Echo Report Name: Jaziel Kohli Age: 73 Gender: M : 1950 Exam Date: 02/20/2024 09:14 Exam Location: [facility] [facility] Ht (in): 69 Wt (lb): 129 Ordering Physician: Attending/Referring Phys: [employer] Loan Calculator Kristy Andino RDCS Procedure CPT: Indications: Cardiac Hx: cva Technical Quality: Very technically difficult study Contrast 1: Definity Total Dose (mL): 2 Contrast 2: Total Dose (mL): MEASUREMENTS (Male / Female) Normal Values 2D ECHO LV Diastolic Diameter PLAX 4.5 cm 4.2 - 5.9 / 3.9 - 5.3 cm LV Systolic Diameter PLAX 3.4 cm IVS Diastolic Thickness 1.3 cm 0.6 - 1.0 / 0.6 - 0.9 cm LVPW Diastolic Thickness 1.2 cm 0.6 - 1.0 / 0.6 - 0.9 cm LV Relative Wall Thickness 0.6 RV Internal Dim ED PLAX 3.1 cm LV Diastolic Volume MOD BP 82.3 cm??? 67 - 155 / 56 - 104 cm??? LV Systolic Volume MOD BP 32.0 cm??? 22 - 58 / 19 - 49 cm??? LV Ejection Fraction MOD BP 61.1 % >= 55 % LV Cardiac Index MOD BP 2786.2 cm???/min???m??? LV Diastolic Volume MOD 4C 90.0 cm??? LV Systolic Volume MOD 4C 34.9 cm??? LV Ejection Fraction MOD 4C 61.2 % LV Cardiac Index MOD 4C 3050.5 cm???/min???m??? LV Diastolic Length 4C 7.7 cm LV Systolic Length 4C 6.4 cm LV Diastolic Volume MOD 2C 70.7 cm??? LV Systolic Volume MOD 2C 29.7 cm??? LV Ejection Fraction MOD 2C 58.0 % LV Cardiac Index MOD 2C 2275.0 cm???/min???m??? LV Diastolic Length 2C 7.1 cm LV Systolic Length 2C 6.4 cm M-MODE Aortic Root Diameter MM 2.9 cm AV Cusp Separation MM 2.3 cm DOPPLER AV Peak Velocity 110.3 cm/s AV Peak Gradient 4.9 mmHg MV Area PHT 3.2 cm??? Mitral E Point Velocity 52.6 cm/s Mitral A Point Velocity 71.7 cm/s Mitral E to A Ratio 0.7 MV Deceleration Time 237.3 ms MV E' Velocity 5.7 cm/s Mitral E to MV E' Ratio 9.2 TR Peak Velocity 271.6 cm/s TR Peak Gradient 29.5 mmHg Right Ventricular Systolic Press 34.5 mmHg FINDINGS Left Ventricle Left ventricular ejection fraction is estimated at 50-55 %. Left ventricular cavity size normal. Mildly increased septal wall thickness. Right Ventricle Normal right ventricular size and function. Mild pulmonary hypertension. Right Atrium Normal right atrial size. Left Atrium Left atrium not well visualized. Mitral Valve Mitral valve thickened. Mitral annular calcification. No mitral stenosis. No mitral regurgitation. Aortic Valve Trileaflet aortic valve. No aortic valve stenosis or regurgitation. Tricuspid Valve Structurally normal tricuspid valve. Mild tricuspid regurgitation. Pulmonic Valve Structurally normal pulmonic valve. No pulmonic regurgitation. Pericardium No pericardial or pleural effusion. Aorta Normal size aortic root and proximal ascending aorta. CONCLUSIONS Very technically difficult study. Left ventricular ejection fraction is estimated at 50-55 %. Mild concentric LVH No significant valvular dysfunction No significant chamber size abnormality Previewed by: Dr Britton Robbins (Electronically Signed) Final Date: 20 February 2024 16:26
--- NOTE | 2024-03-16 16:15 | US ---
Report Patient: Jaziel Kohli Ordering Physician: Unknown, Unknown ID: [id number] Phone, Pager: Phone: N/A Pager: N/A : 1950 Age/Gender: 73Y, N/A Primary Location: N/A Procedure: US carotid duplex BILAT Study Date: 02/20/2024 8:10:00 AM EXAMINATION TYPE: US carotid duplex BILAT DATE OF EXAM: 02/20/2024 COMPARISON: NONE CLINICAL INDICATION: 73-year-old male stenosis, CVA TECHNIQUE: Carotid duplex ultrasound examination. Indirect Doppler criteria was utilized. FINDINGS: EXAM MEASUREMENTS: RIGHT: Peak Systolic Velocity (PSV) cm/sec ----- Right CCA: 124 ----- Right ICA: 187 ----- Right ECA: 118 ICA/CCA ratio: 1.8 RIGHT: End Diastole cm/sec ----- Right CCA: 11.7 ----- Right ICA: 39.8 LEFT: Peak Systolic Velocity (PSV) cm/sec ----- Left CCA: 108 ----- Left ICA: 96.2 ----- Left ECA: 169 ICA/CCA ratio: 1.4 LEFT: End Diastole cm/sec ----- Left CCA: 14.2 ----- Left ICA: 22.6 ----- Left ECA: 0 VERTEBRALS (direction of flow): Right Vertebral: Antegrade Left Vertebral: Unable to visualize Rhythm: Arrhythmia (noted by the shotblast equipment operator) [employer]PER[employer]OR [employer] PROCESSING NOTES: Moderate heterogeneous plaque bilaterally with elevated velocities right ICA. IMPRESSION: 1. Velocity elevation within the right ICA may reflect a moderate (50-69%) right ICA stenosis. 2. Unable to visualize the left vertebral artery. This could be due to hypoplasia or occlusion. Criteria for Assigning % of Stenosis / Diameter reduction (Estimation based on the indirect measurements of the internal carotid artery velocities (ICA PSV). 1. Normal (no stenosis)=ICA PSV < 125 cm/s: ratio < 2.0: ICA EDV<40 cm/s. 2. Less than 50% stenosis=ICA PSV < 125 cm/s: ratio < 2.0: ICA EDV<40 cm/s. 3. 50 to 69% stenosis=ICA PSV of 125 to 230 cm/s: ration 2.0 ? 4.0: ICA EDV 40-100 cm/s. 4. Greater than 70% stenosis to near occlusion= ICA PSV > 230 cm/s: ratio > 4.0: ICA EDV > 100 cm/s. 5. Near occlusion= ICA PSV velocities may be low or undetectable: variable ratio and ICA EDV. 6. Total occlusion=unable to detect flow.
--- NOTE | 2024-03-16 16:16 | US ---
Report Patient: Jaziel Kohli Ordering Physician: Unknown, Unknown ID: [id number] Phone, Pager: Phone: N/A Pager: N/A : 1950 Age/Gender: 73Y, N/A Primary Location: N/A Procedure: US abd limited kidneys/bladder Study Date: 02/20/2024 11:39:00 AM EXAMINATION TYPE: US abd limited kidneys/bladder DATE OF EXAM: 02/20/2024 COMPARISON: None HISTORY: 73-year-old male acute kidney injury, abnormal labs TECHNIQUE: Multiple sonographic images of the right upper quadrant as well as the bilateral kidneys and bladder are obtained. FINDINGS: Pancreas-obscured by bowel gas. Liver-overall homogeneous appearance. * There is a small 1 cm echogenic area near the juan hepatis, possible focal fat or small hemangiom a. * Additional vague isoechoic to hypoechoic lesion measuring 2.5 x 2.0 x 1.7 cm in the right liver lo be adjacent to the gallbladder which is indeterminate. GB- no wall thickening, pericholecystic fluid, or shadowing calculi. Borderline distended up to 4.1 c m. There may be some minimal layering sludge/gravel. CBD-2.8 mm, within normal limits. Right Kidney- 9.9 cm with cortical thinning, no evidence of hydro Left Kidney- Limited detailed assessment due to body habitus. Estimated to measure 10.7 cm. No hydron ephrosis. Bladder- lobulated mural based density along the posterior wall, possible layering debris. No associa pauline vascularity. IMPRESSION: 1. There may be some minimal layering sludge/gravel in the gallbladder. No biliary ductal dilatation. 2. An indeterminate vague 2.5 cm lesion in the right liver lobe adjacent to the gallbladder. Liver MR I for further characterization. 3. A 1 cm area of focal fat or small hepatic hemangioma near the juan hepatis. 4. Lobulated mural density along the posterior wall of the bladder possibly layering debris. No inter nal vascularity to clearly indicate a urothelial mass. Correlate with urinalysis and urine cytology. 4 - 6 week follow-up bladder ultrasound to reassess.
--- NOTE | 2024-03-21 13:14 | XR ---
Patient: Jaziel Diggs Ordering Physician: Unknown, Unknown ID: [id number] Phone, Pager: Phone: N/A Pager: N/A : 1950 Age/Gender: 73Y, M Primary Location: N/A Procedure: CXR 2V Study Date: 02/19/2024 7:57:08 PM EXAMINATION TYPE: XR chest 2V DATE OF EXAM: 02/19/2024 COMPARISON: None HISTORY: 73-year-old male weakness and fever TECHNIQUE: AP and lateral views FINDINGS: Heart upper limits of normal in size. Mild interstitial densities in the mid and lower lungs. Some st nj atelectasis or scar at the left midlung. Hyperinflation. No el consolidation or pleural effu chito. IMPRESSION: Some interstitial densities in the mid and lower lungs could reflect bronchitis or asthma. There may be background COPD. No el pneumonia is seen.
== END 2024-02-23 17:22 | disposition home or self-care (01) | DRG 871 ==
LOC: 3SCARD 23:00
PROVIDERS: ADMIT Internal Medicine; ATTEND Internal Medicine
DX: A41.9 Sepsis, unspecified organism (principal); I21.A1 Myocardial infarction type 2; R29.810 Facial weakness; N18.30 Chronic kidney disease, stage 3 unspecified; Z85.118 Personal history of other malignant neoplasm of bronchus and lung; Z66 Do not resuscitate
CPT/HCPCS: 70450; 70551; 71046; 72125; 72131; 76705; 76770; 80053; 80061; 81001; 82550; 82607; 82746; 83036; 83605; 83735; 84443; 84484; 85025; 85027; 87077; 87086; 87186; 93005; 93306; 93880; 94760; 95816; 96361; 96374; 99291

== ENCOUNTER 2024-02-29 09:35 | Emergency (ER) | payer MEDICARE, BC ==
[2024-02-29 09:55] VITALS: BP 92/65; PULSE 75; RESP 18; TEMP 97.4
--- NOTE | 2024-02-29 10:24 | ED ---
Lower Extremity Injury HPI - General Chief Complaint: Extremity Injury, Lower Stated Complaint: L ankle swelling Time Seen by Provider: 02/29/24 10:21 Source: patient, RN notes reviewed Mode of arrival: ambulatory Limitations: no limitations - History of Present Illness Initial Comments: 3-year-old male presenting with left ankle/lower leg swelling x 5 days. States he was hospitalized for a TIA 1 week ago. He has been having a home health nurse who noticed swelling in the left ankle and lower leg 5 days ago. He called his PCP who instructed him to come to the ER to rule out a blood clot. Patient is a current tobacco smoker. He has current recently diagnosed lung cancer, not on therapy. He was recently placed on Eliquis upon hospital discha rge. Denies recent travel or history of blood clots. Denies injury or trauma to the area. Denies pain or difficulty ambulating. - Related Data Previous Rx's Medication Instructions Recorded Apixaban [Eliquis] 2.5 mg PO BID #30 tab 02/23/24 Aspirin 81 mg PO DAILY #30 tab 02/23/24 Atorvastatin [Lipitor] 20 mg PO HS #30 tab 02/23/24 Famotidine [Pepcid] 20 mg PO BID tab 02/23/24 Folic Acid 1 mg PO DAILY #14 tab 02/23/24 Metoprolol Tartrate [Lopressor] 25 mg PO BID #60 tablet 02/23/24 Multivitamins, Thera [Multivitamin 1 each PO DAILY tab 02/23/24 (formulary)] Thiamine [Vitamin B-1] 100 mg PO DAILY #14 tab 02/23/24 amLODIPine [Norvasc] 5 mg PO DAILY #30 tab 02/23/24 Allergies Allergy/AdvReac Type Severity Reaction Status Date / Time No Known Allergies Allergy Verified 02/29/24 09:55 Review of Systems ROS Statement: Those systems with pertinent positive or pertinent negative responses have been documented in the HPI. ROS Other: All systems not noted in ROS Statement are negative. Past Medical History Past Medical History: Atrial Fibrillation, COPD, CVA/TIA Additional Past Medical History / Comment(s): left sided defecits, SVT, History of Any Multi-Drug Resistant Organisms: None Reported Additional Past Surgical History / Comment(s): broken nose, left knee tendon, Past Psychological History: No Psychological Hx Reported Smoking Status: Current every day smoker Past Alcohol Use History: Daily Past Drug Use History: None Reported General Exam Limitations: no limitations General appearance: alert, in no apparent distress Head exam: Present: atraumatic, normocephalic, normal inspection Eye exam: Present: normal appearance. Absent: scleral icterus, conjunctival injection, periorbital swelling Left Knee exam: Present: normal inspection, full ROM. Absent: tenderness, swelling Lower Leg exam: Present: normal inspection, full ROM. Absent: tenderness, swelling, erythema, Homans' sign Ankle exam: Present: full ROM, swelling (Mild edema with no erythema or tenderness present on left ankle. No pitting edema). Absent: normal inspection, tenderness Foot/Toe exam: Present: normal inspection, full ROM. Absent: tenderness, swelling Neurovascular tendon exam: Present: no vascular compromise. Absent: pulse deficit, abnormal cap refill, sensory deficit Course Vital Signs 02/29/24 09:49 Temperature 97.4 F L Pulse Rate 75 Respiratory 18 Rate Blood Pressure 92/65 O2 Sat by Pulse 98 Oximetry Medical Decision Making - Medical Decision Making Was pt. sent in by a medical professional or institution (, PA, CONTRACT CONSULTANT, urgent care, hospital, or detention...) When possible be specific @ -No Did you speak to anyone other than the patient for history (EMS, parent, family, police, friend...)? What history was obtained from this source @ -Patient's daughter supplemented history Did you review nursing and triage notes (agree or disagree)? Why? @ -I reviewed and agree with nursing and triage notes Were old charts reviewed (outside hosp., previous admission, EMS record, old EKG, old radiological studies, urgent care reports/EKG's, detention records)? Report findings @ -No old charts were reviewed Differential Diagnosis (chest pain, altered mental status, abdominal pain women, abdominal pain men, vaginal bleeding, weakness, fever, dyspnea, syncope, headache, dizziness, GI bleed, back pain, seizure, CVA, palpatations, mental health, musculoskeletal)? @ -Differential Musculoskeletal Muscular strain, contusion, ligament sprain, fracture, arthritis, septic arthritis, bursitis, cellulitis, muscle spasm, nerve compression, DVT, arterial occlusion, herpes zoster, electrolyte abnormality, tumor.... This is not meant to be in all inclusive list EKG interpreted by me (3pts min.). @ -None X-rays interpreted by me (1pt min.). @ -None done CT interpreted by me (1pt min.). @ -None done U/S interpreted by me (1pt. min.). @ -Ultrasound of left lower extremity negative for DVT What testing was considered but not performed or refused? (CT, X-rays, U/S, labs)? Why? @ -None What meds were considered but not given or refused? Why? @ -None Did you discuss the management of the patient with other professionals (professionals i.e. , PA, CONTRACT CONSULTANT, lab, RT, psych nurse, health and social care teacher, business systems analyst, teacher, aboriginal home school liaison officer, insurance case manager)? Give summary @ -No Was smoking cessation discussed for >3mins.? @ -No Was critical care preformed (if so, how long)? @ -No Were there social determinants of health that impacted care today? How? (Homelessness, low income, unemployed, alcoholism, drug addiction, transportation, low edu. Level, literacy, decrease access to med. care, custodial, rehab)? @ -No Was there de-escalation of care discussed even if they declined (Discuss DNR or withdrawal of care, Hospice)? DNR status @ -No What co-morbidities impacted this encounter? (DM, HTN, Smoking, COPD, CAD, Cancer, CVA, ARF, Chemo, Hep., AIDS, mental health diagnosis, sleep apnea, morbid obesity)? @ -None Was patient admitted / discharged? Hospital course, mention meds given and route, prescriptions, significant lab abnormalities, going to OR and other pertinent info. @ -Patient was discharged. Patient was seen and evaluated for left lower extremity swelling x 5 days. Sent by PCP for ultrasound to rule out DVT as patient is an active smoker and his current cancer, recently hospitalized. Upon examination, there is minimal noted edema to the left ankle, no erythema or tenderness. Neurovascularly intact. Pulses strong and equal bilaterally. No red flag symptoms or sign of bacterial infection. Ultrasound performed and was negative for DVT. Results discussed with patient. Advise close follow-up with PCP for reevaluation. Return parameters discussed and patient is agreeable. Case was discussed with my ED attending Dr. Ayala. Patient discharged in stable condition. Undiagnosed new problem with uncertain prognosis? @ -No Drug Therapy requiring intensive monitoring for toxicity (Heparin, Nitro, Insulin, Cardizem)? @ -No Were any procedures done? @ -No Diagnosis/symptom? @ -Left lower extremity edema Acute, or Chronic, or Acute on Chronic? @ -Acute Uncomplicated (without systemic symptoms) or Complicated (systemic symptoms)? @ -Uncomplicated Side effects of treatment? @ -No Exacerbation, Progression, or Severe Exacerbation? @ -No Poses a threat to life or bodily function? How? (Chest pain, [place], [place], pneumonia, PE, COPD, DKA, ARF, appy, cholecystitis, CVA, Diverticulitis, Homicidal, Suicidal, threat to staff... and all critical care pts) @ -No Disposition Clinical Impression: Edema of left lower extremity Disposition: HOME SELF-CARE Condition: Stable Is patient prescribed a controlled substance at d/c from ED?: No Referrals: Adrien Goodwin DO [Primary Care Provider] - 1-2 days Time of Disposition: 12:20
--- NOTE | 2024-02-29 11:16 | US ---
EXAMINATION TYPE: US venous doppler duplex LE LT DATE OF EXAM: 02/29/2024 10:21 AM COMPARISON: NONE CLINICAL INDICATION: Male, 73 years old with history of left lower leg edema r/o DVT; swelling in lef t ankle. Stroke on left side last week. No hx of DVT, on blood thinners SIDE PERFORMED: Left TECHNIQUE: The lower extremity deep venous system is examined utilizing real time linear array sonog idalia with graded compression, doppler sonography and color-flow sonography. VESSELS IMAGED: Common Femoral Vein Deep Femoral Vein Greater Saphenous Vein * Femoral Vein Popliteal Vein Small Saphenous Vein * Proximal Calf Veins (* superficial vessels) The deep venous system of the left lower extremity from the common femoral vein to the proximal calf veins is patent and compressible with augmentable flow with normal waveforms. IMPRESSION: No evidence of left lower extremity DVT from the common femoral vein to the proximal calf veins
== END 2024-02-29 12:51 | disposition home or self-care (01) ==
LOC: EC 09:35
CPT/HCPCS: 99283